=== PATIENT | female | born 1970 | race Hispanic/Latino ===

== ENCOUNTER 2017-07-29 07:40 | Day surgery (SDC) | payer OTHER, BC ==
[~2017-07-29] VITALS: Ht 149.9 cm; Wt 74.8 kg
[~2017-07-29 07:40] MED LIST: ALLEGRA D PO; AMLO5TAB2 PO; DIPH25CA85 PO; ESCI10TA PO; MELA5TAB14 PO; METHIMAZOLE PO; MULT-1203 PO; PANT40TA25 PO; POTA10CA44 PO; SODIUM CHLORIDE 0.9% 1000ML 1,000 ML IV ONE; VALS1TAB75 PO
[2017-07-29 09:25] VITALS: BP 109/73
[2017-07-29] MEDS ORDERED: PROPOFOL 10 MG/ML 20ML VIAL IV ONE (11:53)
[2017-07-29 12:03] VITALS: BP 80/42
== END 2017-07-29 12:45 | disposition home or self-care (01) ==
LOC: DAH 07:40 → ENDO 07:40
PROVIDERS: ATTEND Internal Medicine
DX: K29.50 Unspecified chronic gastritis without bleeding (principal); K31.89 Other diseases of stomach and duodenum; I10 Essential (primary) hypertension; E03.9 Hypothyroidism, unspecified; E66.9 Obesity, unspecified; K21.9 Gastro-esophageal reflux disease without esophagitis; Z79.899 Other long term (current) drug therapy; Z90.710 Acquired absence of both cervix and uterus; Z98.890 Other specified postprocedural states; Z80.41 Family history of malignant neoplasm of ovary; Z80.8 Family history of malignant neoplasm of other organs or systems; Z68.33 Body mass index [BMI] 33.0-33.9, adult
CPT/HCPCS: 43239; 88305; 88312; 91035; A4606; A4649; J2704; J7030